=== PATIENT | female | born 1965 | race Caucasian/White ===

== ENCOUNTER 2017-08-15 18:49 | Emergency (ER) | payer OTHER, MEDICAID ==
[~2017-08-15] VITALS: Ht 154.9 cm; Wt 90.7 kg
[~2017-08-15 18:49] MED LIST: ASPIRIN EC81 M1; GLUCOPHAGE XR500 MG; LIPITOR20 MG; MOTOFEN TABLET1 EACH; NEURONTIN 300M300 M2; OXYCONTIN20 M1; PERCOCET 5-3251 EACH PO; [UNRECOGNIZED DRUG - OTHER]
[2017-08-15] MEDS ORDERED: VITAMIN D31000 UNIT (19:35)
[2017-08-15] MEDS ORDERED: MAGOX 400400 MG (19:35)
[2017-08-15] MEDS ORDERED: VICOPROFEN (19:35)
[2017-08-15] MEDS ORDERED: TUMERIC (19:36)
[2017-08-15] MEDS ORDERED: FLONASE 0.05%50 MCG (19:36)
[2017-08-15] MEDS ORDERED: LEVOFLOXACIN (19:36)
[2017-08-15] MEDS ORDERED: ZPAK PO (20:53)
[2017-08-15] MEDS ORDERED: MEDROLDOSEPACK PO (20:53)
[2017-08-15 21:02] VITALS: BP 144/88
== END 2017-08-15 21:05 | disposition home or self-care (01) ==
LOC: M.ERS 18:49
DX: J32.9 Chronic sinusitis, unspecified (principal); I10 Essential (primary) hypertension; E11.9 Type 2 diabetes mellitus without complications; Z88.0 Allergy status to penicillin; Z88.1 Allergy status to other antibiotic agents; Z88.6 Allergy status to analgesic agent; Z88.8 Allergy status to other drugs, medicaments and biological substances

== ENCOUNTER 2017-12-12 07:38 | Emergency (ER) | payer OTHER, MEDICAID ==
[~2017-12-12] VITALS: Ht 154.9 cm; Wt 93.4 kg
[~2017-12-12 07:38] MED LIST changes: +FLONASE 0.05%50 MCG; +LEVOFLOXACIN; +MAGOX 400400 MG; +MEDROLDOSEPACK PO; +TUMERIC; +VICOPROFEN; +VITAMIN D31000 UNIT; +ZPAK PO
[2017-12-12] MEDS ORDERED: OXYCONTIN10 M1 PO (08:20)
[2017-12-12 08:36] LABS: AMP/METHAMP Negative (Negative); BARBITURATES Negative (Negative); BENZODIAZEPINES Negative (Negative); COCAINE Negative (Negative); METHADONE Negative (Negative); OPIATES Negative (Negative); PCP Negative (Negative); THC Negative (Negative)
[2017-12-12 08:43] VITALS: BP 171/101
== END 2017-12-12 08:44 | disposition home or self-care (01) ==
LOC: M.ERS 07:38
PROVIDERS: Emergency Medicine Emergency Medical Services
DX: F11.23 Opioid dependence with withdrawal (principal); I10 Essential (primary) hypertension; E11.9 Type 2 diabetes mellitus without complications; Z88.0 Allergy status to penicillin; Z88.1 Allergy status to other antibiotic agents; Z88.5 Allergy status to narcotic agent; Z88.6 Allergy status to analgesic agent; Z88.8 Allergy status to other drugs, medicaments and biological substances

== ENCOUNTER 2017-12-30 13:37 | Emergency (ER) | payer OTHER, MEDICAID ==
[~2017-12-30] VITALS: Ht 154.9 cm; Wt 94.3 kg
[~2017-12-30 13:37] MED LIST changes: +OXYCONTIN10 M1 PO
[2017-12-30] MEDS ORDERED: ASPIRIN325 PO (13:51)
[2017-12-30] MEDS ORDERED: IBUPROFEN 200200 M1 PO (13:52)
[2017-12-30 14:44] VITALS: BP 141/81
== END 2017-12-30 14:45 | disposition home or self-care (01) ==
LOC: M.ERS 13:37
DX: M25.561 Pain in right knee (principal); M25.551 Pain in right hip; I10 Essential (primary) hypertension; E11.9 Type 2 diabetes mellitus without complications; Z88.1 Allergy status to other antibiotic agents; Z88.0 Allergy status to penicillin; Z88.5 Allergy status to narcotic agent; Z88.8 Allergy status to other drugs, medicaments and biological substances

== ENCOUNTER 2018-06-27 13:33 | Emergency (ER) | payer OTHER, MEDICAID ==
[~2018-06-27] VITALS: Ht 154.9 cm; Wt 95.3 kg
[~2018-06-27 13:33] MED LIST changes: +ASPIRIN325 PO; +IBUPROFEN 200200 M1 PO
[2018-06-27 13:44] VITALS: BP 193/99
[2018-06-27] MEDS ORDERED: CLONIDINE0.1 PO (13:46)
[2018-06-27] MEDS ORDERED: CLARITIN10 MG PO (13:46)
[2018-06-27] MEDS ORDERED: MUCINEX1200 MG PO (13:47)
[2018-06-27] MEDS ORDERED: ZPAK PO (13:55)
[2018-06-28] MEDS ORDERED: CARISOPRODOL 3350 MG PO (18:54)
[2018-06-29] MEDS ORDERED: ASPIR 8181 MG PO (00:25)
[2018-07-02] MEDS ORDERED: CLONIDINE0.1 PO (09:23)
[2018-07-02] MEDS ORDERED: FLONASE 0.05%50 MCG NASAL (09:23)
[2018-07-02] MEDS ORDERED: PREDNISONE 20 M20 MG PO (09:23)
[2018-07-02] MEDS ORDERED: TRANSDERM-SCOP1 EACH TRANSDERM (09:23)
[2018-07-02] MEDS ORDERED: LEVAQUIN 500 M500 M2 PO (12:32)
== END 2018-06-27 14:05 | disposition home or self-care (01) ==
LOC: M.ERS 13:33
DX: H66.91 Otitis media, unspecified, right ear (principal); H69.83 Other specified disorders of Eustachian tube, bilateral; I10 Essential (primary) hypertension; E11.9 Type 2 diabetes mellitus without complications; M79.7 Fibromyalgia; Z88.1 Allergy status to other antibiotic agents; Z88.0 Allergy status to penicillin; Z88.8 Allergy status to other drugs, medicaments and biological substances; Z88.5 Allergy status to narcotic agent

== ENCOUNTER 2018-07-11 10:35 | Emergency (ER) | payer OTHER, MEDICAID ==
[~2018-07-11] VITALS: Ht 154.9 cm; Wt 95.3 kg
[~2018-07-11 10:35] MED LIST changes: +ASPIR 8181 MG PO; +CARISOPRODOL 3350 MG PO; +CLARITIN10 MG PO; +CLONIDINE0.1 PO; +FLONASE 0.05%50 MCG NASAL; +LEVAQUIN 500 M500 M2 PO; +MUCINEX1200 MG PO; +PREDNISONE 20 M20 MG PO; +TRANSDERM-SCOP1 EACH TRANSDERM
[2018-07-11 11:12] LABS: ABSOLUTE BASOPHILS 0.1 thou/uL (0.0-0.2); ABSOLUTE EOSINOPHILS 0.3 thou/uL (0.0-0.7); ABSOLUTE LYMPHOCYTES 2.4 thou/uL (0.8-5.3); ABSOLUTE MONOCYTES 0.5 thou/uL (0.0-1.2); ABSOLUTE NEUTROPHILS 5.7 thou/uL (1.6-8.1); BASOPHILS 1.3 %; EOSINOPHILS 3.2 %; HEMOGLOBIN 13.1 gm/dL (12.0-15.0); LYMPHOCYTES 27.2 %; MCHC 33.6 g/dL (28.0-37.0); MCV 83.2 fL (80.0-100.0); MONOCYTES 5.2 %; MPV 7.5 fl. (7.2-11.1); NUCLEATED RBCS 0 /100WBC; PLATELET COUNT* 327 thou/uL (150-400); POLYS 63.1 %; RBC 4.69 mil/uL (4.20-5.00); RDW-CV 14.3 % (10.5-14.5)
[2018-07-11 11:32] LABS: ALBUMIN 3.5 g/dL (3.4-5.0); CALCIUM 9.1 mg/dL (8.5-10.1); POTASSIUM 3.9 mmol/L (3.5-5.1); TOTAL BILIRUBIN 0.3 mg/dL (<0.1-1.0); TOTAL PROTEIN 7.4 g/dL (6.4-8.2)
[2018-07-11 15:25] VITALS: BP 177/92
== END 2018-07-11 15:25 | disposition short-term general hospital (02) ==
LOC: M.ERS 10:35
PROVIDERS: Physician Assistant
DX: H70.93 Unspecified mastoiditis, bilateral (principal); H66.93 Otitis media, unspecified, bilateral; I10 Essential (primary) hypertension; E11.9 Type 2 diabetes mellitus without complications; M79.7 Fibromyalgia; Z88.0 Allergy status to penicillin; Z88.1 Allergy status to other antibiotic agents; Z88.8 Allergy status to other drugs, medicaments and biological substances; Z88.5 Allergy status to narcotic agent

== ENCOUNTER 2019-03-09 07:27 | Emergency (ER) | payer OTHER, MEDICAID ==
[~2019-03-09] VITALS: Ht 154.9 cm; Wt 93.4 kg
[2019-03-09] MEDS ORDERED: ELIMITE60 GM TOP (08:24)
[2019-03-09] MEDS ORDERED: PREDNISONE 20 M20 MG PO (08:24)
[2019-03-09 08:32] VITALS: BP 172/78
== END 2019-03-09 08:34 | disposition home or self-care (01) ==
LOC: M.ERS 07:27
DX: R21 Rash and other nonspecific skin eruption (principal); I10 Essential (primary) hypertension; E11.9 Type 2 diabetes mellitus without complications; M79.7 Fibromyalgia; Z88.0 Allergy status to penicillin; Z88.1 Allergy status to other antibiotic agents; Z88.6 Allergy status to analgesic agent; Z88.8 Allergy status to other drugs, medicaments and biological substances

== ENCOUNTER 2020-03-04 06:06 | Emergency (ER) | payer OTHER ==
[~2020-03-04] VITALS: Ht 154.9 cm; Wt 97.5 kg
[~2020-03-04 06:06] MED LIST changes: +ELIMITE60 GM TOP
[2020-03-04] MEDS ORDERED: TRAMADOL 50 MG50 MG PO (06:21)
[2020-03-04] MEDS ORDERED: CBD OIL (06:22)
[2020-03-04 06:35] VITALS: BP 150/82
== END 2020-03-04 06:35 | disposition home or self-care (01) ==
LOC: M.ERS 06:06
DX: T16.2XXA Foreign body in left ear, initial encounter (principal); I10 Essential (primary) hypertension; E11.9 Type 2 diabetes mellitus without complications; M79.7 Fibromyalgia; Z96.659 Presence of unspecified artificial knee joint; Z88.1 Allergy status to other antibiotic agents; Z88.0 Allergy status to penicillin; Z88.8 Allergy status to other drugs, medicaments and biological substances; Z88.5 Allergy status to narcotic agent; X58.XXXA Exposure to other specified factors, initial encounter; Y93.89 Activity, other specified; Y92.89 Other specified places as the place of occurrence of the external cause; Y99.8 Other external cause status

== ENCOUNTER 2020-07-23 09:46 | Emergency (ER) | payer OTHER, MEDICAID ==
[~2020-07-23] VITALS: Ht 154.9 cm; Wt 97.5 kg
[~2020-07-23 09:46] MED LIST changes: +CBD OIL; +TRAMADOL 50 MG50 MG PO
[2020-07-23] MEDS ORDERED: FARXIGA5 MG PO (10:02)
[2020-07-23 11:11] LABS: URINE BILIRUBIN NEGATIVE (Negative); URINE BLOOD NEGATIVE (Negative); URINE CLARITY CLEAR; URINE COLOR YELLOW; URINE GLUCOSE-RANDOM 3+ (Negative); URINE KETONES NEGATIVE (Negative); URINE LEUKOCYTES NEGATIVE (Negative); URINE NITRITE NEGATIVE (Negative); URINE PROTEIN NEGATIVE (Negative); URINE UROBILINOGEN 0.2 E.U./dl (0.2-1.0)
[2020-07-23 11:13] LABS: ABSOLUTE BASOPHILS 0.1 thou/uL (0.0-0.2); ABSOLUTE EOSINOPHILS 0.3 thou/uL (0.0-0.7); ABSOLUTE LYMPHOCYTES 2.5 thou/uL (0.8-5.3); ABSOLUTE MONOCYTES 0.5 thou/uL (0.0-1.2); ABSOLUTE NEUTROPHILS 4.6 thou/uL (1.6-8.1); BASOPHILS 1.3 %; EOSINOPHILS 3.7 %; HEMATOCRIT 38.7 % (37.0-47.0); LYMPHOCYTES 30.9 %; MCH 26.8 pg (26.0-34.0); MCHC 33.5 g/dL (28.0-37.0); MCV 79.9 fL (80.0-100.0); MONOCYTES 6.7 %; MPV 7.7 fl. (7.2-11.1); NUCLEATED RBCS 0 /100WBC; PLATELET COUNT* 272 thou/uL (150-400); POLYS 57.4 %; RBC 4.85 mil/uL (4.20-5.00); RDW-CV 15.3 % (10.5-14.5); WBC 7.9 thou/uL (4.0-11.0)
[2020-07-23 11:21] LABS: ANION GAP 12 mmol/L (7-16); BUN 22 mg/dL (7-18); CALCIUM 8.9 mg/dL (8.5-10.1); CHLORIDE 106 mmol/L (98-107); CO2 23 mmol/L (21-32); CREATININE 0.9 mg/dL (0.6-1.3); GLUCOSE 158 mg/dL (70-99); POTASSIUM 4.4 mmol/L (3.5-5.1); SODIUM 141 mmol/L (136-145)
[2020-07-23 11:33] LABS: ALBUMIN 3.8 g/dL (3.4-5.0); ALKALINE PHOSPHATASE 117 U/L (46-116); AMYLASE 55 U/L (25-115); DIRECT BILIRUBIN < 0.1 mg/dL (<0.1-0.3); LIPASE 184 U/L (73-393); MAGNESIUM 2.1 mg/dL (1.8-2.4); PHOSPHORUS* 3.6 mg/dL (2.5-4.9); SGOT 24 U/L (15-37); SGPT 56 U/L (30-65); TOTAL BILIRUBIN 0.2 mg/dL (<0.1-1.0); TOTAL PROTEIN 7.9 g/dL (6.4-8.2)
[2020-07-23 12:23] VITALS: BP 180/91
--- NOTE | 2020-07-24 15:23 | EKG ---
[place] [address] ELECTROCARDIOGRAM REPORT Name: ENA SELBY Room: [facility]#: [id number] Admission: 07/23/20 Attend Phys: Discharge: 07/23/20 Date of : 63 Date of Service: 07/23/20 1126 Report #: [id number] THIS REPORT FOR: //name// [facility] ED Test Date: 2020-07-23 Test Time: 11:26:24 Pat Name: ENA SELBY Department: Room: Gender: F Overlocker: : 1965 Requested By: Harsh Stephenson Order Number: [id number] MD: Pedro Luis Martin Measurements Intervals [place] Rate: 68 P: 46 NC: 133 QRS: 54 QRSD: 98 T: 30 QT: 404 QTc: 430 Interpretive Statements Sinus rhythm Nonspecific T abnormalities, anterior leads Compared to ECG 06/28/2018 19:08:11 T-wave abnormality now present Electronically Signed On 07-24-2020 15:23:33 CDT by Pedro Luis Martin [email or web address] <ELECTRONICALLY SIGNED> By: Pedro Luis Martin MD, FACC 07/24/20 1523 1126 1126 Pedro Luis Martin MD, [facility] /EPI
== END 2020-07-23 12:24 | disposition home or self-care (01) ==
LOC: M.ERS 09:46
PROVIDERS: Emergency Medicine
DX: I88.0 Nonspecific mesenteric lymphadenitis (principal); Z20.822 Contact with and (suspected) exposure to COVID-19; I10 Essential (primary) hypertension; E11.9 Type 2 diabetes mellitus without complications; M79.7 Fibromyalgia; Z88.8 Allergy status to other drugs, medicaments and biological substances; Z88.1 Allergy status to other antibiotic agents; Z88.0 Allergy status to penicillin; Z88.5 Allergy status to narcotic agent; Z96.659 Presence of unspecified artificial knee joint